=== PATIENT | female | born 1980 | race American Indian/Alaskan Native ===

== ENCOUNTER 2020-07-17 07:38 | Outpatient (CLI) | payer MEDICAID ==
--- NOTE | 2020-07-17 09:23 | Treadmill Report ---
TREADMILL STRESS TEST INDICATIONS: Abnormal EKG. ORDERING PHYSICIAN: Omid Ha MD FINDINGS: The patient's baseline blood pressure is 144/66, baseline heart rate 77. Baseline EKG, sinus rhythm, nonspecific ST-T. The patient exercised on Young protocol for 7 minutes, achieved a max heart rate 162, which is 90% max predicted heart rate and max blood pressure is 167/92. The patient had no EKG changes or rhythm suggestive of ischemia. SUMMARY: 1. Negative treadmill EKG. 2. Fair exercise capacity, 7 minutes Young protocol. 3. No exaggerated BP response to exercise. 4. There are no EKG changes or arrhythmia suggestive of ischemia. JOB# [id number] WYATT/JACINDA
== END 2020-07-17 07:39 | disposition home or self-care (01) ==
LOC: CARD 07:38
PROVIDERS: ATTEND Internal Medicine Cardiovascular Disease
DX: R07.89 Other chest pain (principal); R06.02 Shortness of breath; I10 Essential (primary) hypertension; E78.49 Other hyperlipidemia
CPT/HCPCS: 93017